=== PATIENT | male | born 1995 | race Caucasian/White ===

== ENCOUNTER 2020-03-21 16:14 | Observation (INO) ==
[2020-03-21] MEDS ORDERED: SODIUM CHLORIDE 0.9% 1000ML 1,000 ML IV SCH (16:45)
--- NOTE | 2020-03-21 16:46 | Emergency Department Note ---
History of Present Illness General Chief complaint: Sore Throat Stated complaint: sore throat Time Seen by Provider: 03/21/20 16:33 History of Present Illness Maximum Pain Intensity: 8 This is a 25-year-old male that presents to the emergency department via private vehicle with complaints of "sore throat". The patient states that this past Wednesday he began with unilateral, left-sided sore throat. This seemed to worsen since that time. Yesterday he got to the point where he could not open his mouth and presented to [facility] where he was evaluated. He notes he was given pain medication. He was reevaluated today and diagnosed with a peritonsillar abscess. He was referred here for further evaluation and management. He denies any fevers, chills, chest pain or shortness of breath. No trouble breathing. He does note some mild drooling and some difficulty swa llowing at times secondary to this. He has never had this before. He notes that he had a negative strep test yesterday performed at [facility] as well as a negative Covid test. He tested negative for mono today. No antibiotics thus far. Home Medications Home Medications Medication Instructions Recorded Confirmed Type ibuprofen [Advil] 400 mg PO Q6H PRN 03/21/20 03/21/20 History Allergies Allergy/AdvReac Type Severity Reaction Status Date / Time No Known Allergies Allergy Unverified 03/21/20 19:00 Past Med/Surg History Medical History No pertinent past medical history Surgical History No pertinent past surgical history Social History Smoking Status: Never smoker Hx Alcohol Use: Yes Hx Substance Use: No Preferred Language: Georgian Communication Ability: Effective Cryolite Recovery Operator Required: No Beliefs That Will Affect Care: None Current Living Situation: Alone Feels Safe at Home: Yes Assistive Devices: Glasses Review of Systems A total of 10 systems reviewed and were otherwise negative Physical Exam Vital Signs Vital Signs - 24 hr 03/21/20 16:27 03/21/20 17:05 03/21/20 17:27 Temperature 37.7 C H Temperature Source Oral Pulse Rate 73 65 75 Pulse Rate from SpO2 Sensor 67 76 Respiratory Rate 18 15 12 Respiratory Effort / Characteristics Non-Labored Spontaneous Respiratory Depth Normal Respiratory Pattern Regular Blood Pressure 168/96 H 150/91 H Blood Pressure Mean 120 107 Blood Pressure Position Sitting Pulse Oximetry 99 99 100 Oxygen Delivery Method Room Air Room Air Room Air Sepsis Recent Fever Within 48 Hours No Sepsis New/Unexplained Change in Mental Status N/A Sepsis Action Taken by Nursing No Action Required 03/21/20 17:30 03/21/20 17:40 03/21/20 18:09 Temperature Temperature Source Pulse Rate 72 81 78 Pulse Rate from SpO2 Sensor 71 80 Respiratory Rate 14 16 9 L Respiratory Effort / Characteristics Respiratory Depth Respiratory Pattern Blood Pressure 150/94 H 151/92 H Blood Pressure Mean 105 113 Blood Pressure Position Pulse Oximetry 98 100 Oxygen Delivery Method Room Air Room Air Room Air Sepsis Recent Fever Within 48 Hours Sepsis New/Unexplained Change in Mental Status Sepsis Action Taken by Nursing 03/21/20 18:11 03/21/20 18:20 03/21/20 18:30 Temperature Temperature Source Pulse Rate 86 82 83 Pulse Rate from SpO2 Sensor 73 Respiratory Rate 16 12 12 Respiratory Effort / Characteristics Respiratory Depth Respiratory Pattern Blood Pressure 150/98 H Blood Pressure Mean 114 Blood Pressure Position Pulse Oximetry 99 Oxygen Delivery Method Room Air Room Air Room Air Sepsis Recent Fever Within 48 Hours Sepsis New/Unexplained Change in Mental Status Sepsis Action Taken by Nursing 03/21/20 18:40 03/21/20 18:50 Temperature Temperature Source Pulse Rate 73 83 Pulse Rate from SpO2 Sensor 73 81 Respiratory Rate 17 16 Respiratory Effort / Characteristics Respiratory Depth Respiratory Pattern Blood Pressure Blood Pressure Mean Blood Pressure Position Pulse Oximetry 98 97 Oxygen Delivery Method Room Air Room Air Sepsis Recent Fever Within 48 Hours Sepsis New/Unexplained Change in Mental Status Sepsis Action Taken by Nursing VITAL SIGNS - Vital signs and nursing notes were reviewed. Stable and borderline febrile. GENERAL -25-year-old male appearing his stated age who is in no acute distress. Communicates well with provider and answers questions appropriately. SKIN - Without rashes. No meningeal or petechial rash HEAD - NC/AT. EYES - PERRL with EOMI bilaterally. Sclera anicteric. Palpebral conjunctiva pink and moist with no injection noted. EARS - No deformities of external structures noted on gross examination bilaterally. No pain elicited with palpation of the tragus bilaterally. External auditory canals without discharge or otorrhea. Tympanic membranes pearly blandon without retraction or bulging. No fluid or purulent material visualized behind the TM. Handle of malleus, umbo, cone of light, pars tensa/flaccid all easily visualized. NOSE - Midline and without cyanosis. No epistaxis or purulent drainage noted. Septum midline without deviation or septal hematoma noted. MOUTH/OROPHARYNX - Without perioral cyanosis. There is 2-3+ tonsillar hypertrophy, also left soft palate involvement with fullness. Trismus noted. No drooling. There is altered phonation noted. Good dentition noted. NECK - Neck with FROM. Supple to palpation. Bilateral left greater than right anterior cervical lymphadenopathy noted. No nuchal rigidity. LUNGS - Chest wall symmetric without accessory muscle use, intercostals retractions, or central cyanosis. Normal vesicular breath sounds CTA B/L. No wheezes, rales, or rhonchi appreciated. CARDIAC - RRR with S1/S2. No murmur, rubs, or gallops appreciated. NEUROLOGIC - Cranial nerves II through XII grossly intact. PSYCH - A&Ox3 and cooperates fully with examiner. Pt is very pleasant and interacts well with examiner. Course Administered Medications Acetaminophen (Ofirmev) 1,000 mg in 100 mls @ 400 mls/hr IV Q8H PRN PRN Reason: Pain or Fever Stop: 03/24/20 20:06 Last Infusion: 03/21/20 21:01 Dose: 0 mls/hr Documented by: [id number] Admin: 03/21/20 20:38 Dose: 400 mls/hr Documented by: [id number] Discontinued Medications Dexamethasone (Dexamethasone Sod Inj 10 Mg/Ml Vial) 10 mg IV NOW ONE Stop: 03/21/20 17:31 Last Admin: 03/21/20 18:20 Dose: 10 mg Documented by: [id number] Sodium Chloride (Nss 1000ml) 1,000 mls @ 999 mls/hr IV .Q1H1M BRENDA Stop: 03/21/20 17:45 Last Infusion: 03/21/20 18:15 Dose: 0 mls/hr Documented by: [id number] Admin: 03/21/20 17:09 Dose: 999 mls/hr Documented by: [id number] Ampicillin Sodium/Sulbactam Sodium 3,000 mg/ Sodium Chloride 108 mls @ 200 mls/hr IV NOW STA; Protocol Stop: 03/21/20 18:02 Last Infusion: 03/21/20 19:03 Dose: 0 mls/hr Documented by: [id number] Admin: 03/21/20 18:20 Dose: 200 mls/hr Documented by: [id number] Ioversol (Ioversol 100ml) 94 ml IV ONCE ONE Stop: 03/21/20 18:01 Last Admin: 03/21/20 18:00 Dose: 94 ml Documented by: [id number] Ketorolac Tromethamine (Ketorolac Tromethamine 15 Mg/Ml Vial) 15 mg IV NOW STA Stop: 03/21/20 17:31 Last Admin: 03/21/20 18:20 Dose: 15 mg Documented by: [id number] Medical Decision Making Laboratory Data Result diagrams: 03/21/20 17:05 03/21/20 17:05 Lab Results 03/21/20 03/21/20 Range/Units 17:05 17:05 WBC 11.62 H (4.8-10.8) K/uL RBC 5.11 (4.7-6.1) M/uL Hgb 15.5 (14.0-18.0) g/dL Hct 45.1 (42-52) % MCV 88.3 (80-100) fL MCH 30.3 (25-34) pg MCHC 34.4 (32-36) g/dL RDW Std Deviation 39.1 (36.4-46.3) fL RDW Coeff of Ravin 12.2 (11.5-14.5) % Plt Count 262 (130-400) K/uL MPV 9.8 (7.4-10.4) fL Immature Gran % (Auto) 0.2 % Neut % (Auto) 70.0 % Lymph % (Auto) 18.5 % Davison % (Auto) 10.9 % Eos % (Auto) 0.3 % Baso % (Auto) 0.1 % Neut # (Auto) 8.13 H (1.4-6.5) K/uL Lymph # (Auto) 2.15 (1.2-3.4) K/uL Davison # (Auto) 1.27 H (0.11-0.59) K/uL Eos # (Auto) 0.04 (0-0.5) K/uL Baso # (Auto) 0.01 (0-0.2) K/uL Immature Gran # (Auto) 0.02 (0.00-0.02) K/uL Sodium 140 (136-145) mmol/L Potassium 3.8 (3.5-5.1) mmol/L Chloride 109 H (98-107) mmol/L Carbon Dioxide 25 (21-32) mmol/L Anion Gap 7.0 (3-11) BUN 14 (7-18) mg/dl Creatinine 0.97 (0.6-1.4) mg/dl Est Cr Clr Drug Dosing 126.1 ml/min Est GFR ( Amer) 127.0 Est GFR (Non-Af Amer) 109.6 BUN/Creatinine Ratio 14.4 (10-20) Glucose 78 (70-99) mg/dl Calcium 10.1 (8.5-10.1) mg/dl Total Bilirubin 1.3 H (0.2-1) mg/dl AST 15 (15-37) U/L ALT 41 (12-78) U/L Alkaline Phosphatase 85 (45-117) U/L Total Protein 7.9 (6.4-8.2) gm/dl Albumin 3.8 (3.4-5.0) gm/dl Globulin 4.1 H (2.5-4.0) gm/dl Albumin/Globulin Ratio 0.9 (0.9-2) Imaging Data Radiologist's Impression: CT soft tissue neck w con HISTORY: left sided tonsillar pain, drooling, trismus TECHNIQUE: Multiaxial CT images of the neck were performed following the use of 94 cc of Optiray 320. COMPARISON STUDY: None. FINDINGS: The visualized brain parenchyma and orbits are unremarkable. The pterygopalatine fossa are well-maintained. The parotid and submandibular glands are symmetric. The thyroid gland enhances normally. The lung apices are clear. No fractures within the visualized osseous structures. The paranasal sinuses and mastoid air cells are clear. The major cervical vessels enhance normally. Prevertebral soft tissues and the epiglottis are normal in thickness. There is mild hypertrophy of the lingual tonsils. There is mild left-sided cervical lymphadenopathy. This is likely reactive. There is heterogeneous enhancement and enlargement of the bilateral pontine tonsils, left greater than right. These abut at the midline and result in narrowing of the oropharynx. There is a left anterior peritonsillar hypodensity demonstrate partial peripheral enhancement best seen on axial images 174 through 185. This measures approximately 1.8 x 1.2 cm and is consistent with a developing peritonsillar abscess. Trace edema withi n the left paratracheal fat spaces which is likely reactive. IMPRESSION: 1. There is heterogeneous enhancement and enlargement of the bilateral pontine tonsils, left greater than right. These abut at the midline and result in narrowing of the oropharynx. This is consistent with a tonsillitis. 2. There is a 1.8 x 1.2 cm hypodensity within the left anterior peritonsillar location which demonstrates partial peripheral enhancement. Therefore, this is consistent with a developing peritonsillar abscess. 3. Mild left-sided cervical lymphadenopathy which is likely reactive. ACT 112: Negative or not required by law. Electronically signed by: Migel Sosa M.D. 03/21/2020 6:39 PM MDM Narrative Patient was seen and evaluated as above in room B09. Review was performed of nursing notes and vital signs. I did review paperwork from [facility]. After obtaining a thorough history and physical examination the above work up was performed. He presents to us today with a sore throat, mainly left side with suspected peritonsillar abscess. I would agree with this concern on examination. Vital signs stable. Discussed case with on-call ENT physician, Dr. Jimenez. 10 mg of dexamethasone IV every 8, IV Unasyn recommended. We discussed patient presentation and physical examination here. The patient has trismus, notes that he is experiencing drooling at times, and does have difficulty swallowing. Given this we agreed it is reasonable to have him stay in the hospital overnight to be reassessed in the a.m. by ENT for potential drainage of the suspected peritonsillar abscess. We agreed upon obtaining imaging. Results of the CT as above. Patient will be mated to the hospital for intravenous antibiotics, steroids, pain control with evaluation by ENT with likely drainage tomorrow. Patient amenable to staying. Please refer to further documentation regarding his stay. In the evaluation and treatment of this patient the following differential diagnoses were entertained: Strep pharyngitis, viral pharyngitis, allergic rhinitis with post nasal drip, airway obstruction, head/neck neoplasias, GERD, peritonisllar abscess, epiglottitis, eqri-dprj-mkd-mouth disease, herpes simplex, mononucleosis, pneumonia, retropharyngeal abscess, scarlet fever, among others. Impression & Plan Peritonsillar abscess Discharge Plan Visit Data Chief Complaint: Sore Throat Stated Complaint: sore throat ED Provider: [facility] Midlevel Provider: Artur Rosas Discharge Problem: Peritonsillar abscess Patient Disposition: Admitted As Inpatient Condition: Good Discharge Instructions Interventions: ED Discharge Assessment Last Done: 03/21/20 19:42
[2020-03-21 17:12] LABS: Basophils # (auto) 0.01 K/uL (0-0.2); Basophils % (auto) 0.1 %; Eosinophils # (auto) 0.04 K/uL (0-0.5); Eosinophils % (auto) 0.3 %; Hematocrit (blood only) 45.1 % (42-52); Hemoglobin 15.5 g/dL (14.0-18.0); Immature Granulocytes # (auto) 0.02 K/uL (0.00-0.02); Immature Granulocytes % (auto) 0.2 %; Lymphocytes # (auto) 2.15 K/uL (1.2-3.4); Lymphocytes % (auto) 18.5 %; Mean Corpuscular Hemoglobin 30.3 pg (25-34); Mean Corpuscular Hgb Conc 34.4 g/dL (32-36); Mean Corpuscular Volume 88.3 fL (80-100); Mean Platelet Volume 9.8 fL (7.4-10.4); Monocytes # (auto) 1.27 K/uL (0.11-0.59); Monocytes % (auto) 10.9 %; Neutrophils # (auto) 8.13 K/uL (1.4-6.5); Platelet Count 262 K/uL (130-400); RDW Coefficient of Variation 12.2 % (11.5-14.5); RDW Standard Deviation 39.1 fL (36.4-46.3); Red Blood Count 5.11 M/uL (4.7-6.1); White Blood Count 11.62 K/uL (4.8-10.8)
[2020-03-21] MEDS ORDERED: AMPICILLIN/SULBACTAM SOD 3,000 MG in 0.9 % SODIUM CHLORIDE 100 ML IV STA (17:30)
[2020-03-21] MEDS ORDERED: DEXAMETHASONE SOD INJ 10 MG/ML VIAL IV ONE (17:30)
[2020-03-21] MEDS ORDERED: KETOROLAC TROMETHAMINE 15 MG/ML VIAL IV STA (17:30)
[2020-03-21 17:31] LABS: Albumin Level 3.8 gm/dl (3.4-5.0); BUN Creatinine Ratio 14.4 (10-20); Calcium 10.1 mg/dl (8.5-10.1); Creatinine Clr Calc Pharmacy 126.1 ml/min; Est GFR (Non-African American) 109.6; Potassium 3.8 mmol/L (3.5-5.1)
[2020-03-21 17:34] LABS: Albumin Globulin Ratio 0.9 (0.9-2); Bilirubin,Total 1.3 mg/dl (0.2-1); Globulin 4.1 gm/dl (2.5-4.0); Total Protein 7.9 gm/dl (6.4-8.2)
[2020-03-21] MEDS ORDERED: IOVERSOL 100ml IV ONE (18:00)
--- NOTE | 2020-03-21 18:40 | CT Scan Report ---
CT soft tissue neck w con HISTORY: left sided tonsillar pain, drooling, trismus TECHNIQUE: Multiaxial CT images of the neck were performed following the use of 94 cc of Optiray 320. COMPARISON STUDY: None. FINDINGS: The visualized brain parenchyma and orbits are unremarkable. The pterygopalatine fossa are well-maintained. The parotid and submandibular glands are symmetric. The thyroid gland enhances natasha lly. The lung apices are clear. No fractures within the visualized osseous structures. The paranasal sinuses and mastoid air cells are clear. The major cervical vessels enhance normally. Prevertebral so ft tissues and the epiglottis are normal in thickness. There is mild hypertrophy of the lingual tonsi ls. There is mild left-sided cervical lymphadenopathy. This is likely reactive. There is heterogeneou s enhancement and enlargement of the bilateral pontine tonsils, left greater than right. These abut a t the midline and result in narrowing of the oropharynx. There is a left anterior peritonsillar hypod ensity demonstrate partial peripheral enhancement best seen on axial images 174 through 185. This jocy sures approximately 1.8 x 1.2 cm and is consistent with a developing peritonsillar abscess. Trace munir ma within the left paratracheal fat spaces which is likely reactive. IMPRESSION: 1. There is heterogeneous enhancement and enlargement of the bilateral pontine tonsils, left greater than right. These abut at the midline and result in narrowing of the oropharynx. This is consistent w ith a tonsillitis. 2. There is a 1.8 x 1.2 cm hypodensity within the left anterior peritonsillar location which demonstr ates partial peripheral enhancement. Therefore, this is consistent with a developing peritonsillar ab scess. 3. Mild left-sided cervical lymphadenopathy which is likely reactive. ACT 112: Negative or not required by law. Electronically signed by: Migel Sosa M.D. 03/21/2020 6:39 PM
--- NOTE | 2020-03-21 19:00 | History & Physical Report ---
Date of Service March 21, 2020 Assessment & Plan (1) Peritonsillar abscess: Request [facility] negative COVID-19 test. Unasyn 3 g IV every 6 hours Decadron 10 mg IV every 8 hours Consult ENT Admission and Anticipated Discharge Date Admission Date: 03/21/2020 History of Present Illness Chief Complaint: Sore throat Primary Care Provider: [facility] Ben Azul is a 25-year-old male who presents due to a sore throat. He has a longstanding history of repeated sore throat infections. At one point he started the discussed taking out his tonsils otitis was never performed as he never had enough infections to warrant this. This sore throat started 4 days ago. Progressively getting worse since that time. Had a telehealth visit 2 days ago recommended ibuprofen alone. He followed up yesterday for an in person visit with [facility] with a rapid strep negative, mono negative times Covid negative test. He was reevaluated today with significant trismus was therefore advised to come to the ER due to concerns for tonsillar abscess. No fevers, chills, dyspnea. In the ER he had a CT neck soft tissue showing 1.8 x 1.2 cm hypodensity concerning for developing peritonsillar abscess. Allergies Allergy/AdvReac Type Severity Reaction Status Date / Time No Known Allergies Allergy Unverified 03/21/20 19:00 Home Medications Home Medications Medication Instructions Recorded Confirmed Type ibuprofen [Advil] 400 mg PO Q6H PRN 03/21/20 03/21/20 History Past Med/Surg History Medical History No pertinent past medical history Surgical History No pertinent past surgical history Social History Smoking Status: Never smoker Hx Alcohol Use: Yes Hx Substance Use: No Preferred Language: Kyrgyz Communication Ability: Effective Licensed Practical Nurse Required: No Beliefs That Will Affect Care: None Current Living Situation: Alone Feels Safe at Home: Yes Assistive Devices: Glasses Review of Systems Review of Systems: All systems reviewed & are unremarkable except as noted in HPI & below Physical Exam Constitutional: well developed and well nourished; no acute distress Eyes: + anicteric sclerae; normal pupil size ENMT: Left-sided neck tenderness to palpation without significant erythema or swelling. Shotty cervical lymphadenopathy on left side. Neck: trachea midline Respiratory: normal respiratory effort, lungs clear to auscultation no stridor Cardiovascular: RRR, no murmur, no edema Skin: no rashes, warm and dry Psychiatric: A+Ox3, euthymic affect Results & Data Results & Data ([facility]) Vital Signs (Past 12 Hours) Vital Signs Temp Pulse Resp BP Pulse Ox 03/21/20 16:27 37.7 C H 73 18 168/[address] soft tissue neck w con IMPRESSION: 1. There is heterogeneous enhancement and enlargement of the bilateral pontine tonsils, left greater than right. These abut at the midline and result in narrowing of the oropharynx. This is consistent with a tonsillitis. 2. There is a 1.8 x 1.2 cm hypodensity within the left anterior peritonsillar location which demonstrates partial peripheral enhancement. Therefore, this is consistent with a developing peritonsillar abscess. 3. Mild left-sided cervical lymphadenopathy which is likely reactive. Code Status & VTE Plan Code Status Full PG Care Time/CCT Total # of Minutes Spent Total Time Spent with Patient: Total time spent is greater than 50% in coordination of care (as documented) at patient's floor/unit and/or counseling patient: Coding Level of Care Code 67067 OBS Care - Level 2 Diagnoses Peritonsillar abscess J36
[2020-03-21] MEDS: ACETAMINOPHEN 1,000 MG/100 ML VIAL IV PRN (20:38)
[2020-03-22] MEDS: AMPICILLIN/SULBACTAM SOD 3,000 MG in 0.9 % SODIUM CHLORIDE 100 ML IV SCH ×5 (00:33→23:29)
[2020-03-22] MEDS: DEXAMETHASONE SOD PHOSPHATE 10 MG in SYRINGE 0 ML IV SCH ×3 (01:05→17:51)
[2020-03-22] MEDS ORDERED: DEXAMETHASONE SOD INJ 10 MG/ML VIAL IV SCH (02:00)
--- NOTE | 2020-03-22 11:16 | ENT Consultation ---
Date of Consultation March 22, 2020 Assessment & Plan (1) Peritonsillar abscess: Diet: liquids in 2 hours, then softs, full tomorrow D/C on 14 days Augmentin, medrol dose pack, can follow-up with me in 2 weeks if any questions or concerns. 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 Feeling much better today, normal voice, no difficulty swallowing. Was antibiotic naive. Allergies Allergy/AdvReac Type Severity Reaction Status Date / Time No Known Allergies Allergy Unverified 03/21/20 19:00 Home Medications Home Medications Medication Instructions Recorded Confirmed Type ibuprofen [Advil] 400 mg PO Q6H PRN 03/21/20 03/21/20 History Patient History Medical History No pertinent past medical history Surgical History No pertinent past surgical history Social History Smoking Status: Never smoker Hx Alcohol Use: Yes Hx Substance Use: No Preferred Language: Uzbek Communication Ability: Effective Milk Treater Required: No Beliefs That Will Affect Care: None Current Living Situation: Alone Feels Safe at Home: Yes Assistive Devices: Glasses Review of Systems Review of Systems: All systems reviewed & are unremarkable except as noted in HPI & below Physical Exam Physical Exam: General: AAOx3 Oral cavity: Slight asymmetry of left tonsil, much improved based on comparison with CT Procedure: 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 Then 18 guage needle was used to aspirate into the space. Scant purulence was returned. Patient tolerated without any issues. Results & Data ([facility]) Vital Signs (Past 12 Hours) Vital Signs Temp Pulse Resp BP Pulse Ox 03/22/20 07:39 36.6 C 52 L 20 135/73 100 03/22/20 00:01 36.7 C 69 19 126/80 97
--- NOTE | 2020-03-22 11:58 | Hospitalist Progress Note ---
Date of Service March 22, 2020 Assessment & Plan (1) Peritonsillar abscess: Small left peritonsillar abscess seen on CT on 03/21. - Drained small amount of fluid by ENT on 03/22. - Continue Unasyn & dexamethasone - Slowly advance diet, monitor overnight. - Discharge on 2 weeks of Augmentin and a Medrol-Dosepak per ENT. Can follow up in 2 weeks if needed with ENT. If he feels entirely back to baseline, he can skip the follow up. Admission and Anticipated Discharge Date Admission Date: March 21, 2020 Subjective Feeling like 80% better this morning. Able to handle secretions and talk in more clear voice. Reports no fevers/chills, chest pain, shortness of breath, abdominal pain, nausea, or vomiting. Physical Exam Constitutional: WD/WN, vitals as above Eyes: EOM intact bilaterally; no conjunctival abnormality ENMT: external ear and nose normal, oropharynx normal Neck: trachea midline, no thyromegaly normal visual inspection, trachea midline and + neck tender (Mildly on left side); no midline deformity Respiratory: normal respiratory effort, lungs clear to auscultation no respiratory distress Cardiovascular: RRR, no murmur, no edema Gastrointestinal (Abdomen): Inspection/Auscultation: abdomen normal to inspection; abdomen not distended Musculoskeletal: no cyanosis or clubbing, extremities motor strength 5/5 Skin: no rashes, warm and dry Neurologic: moves all extremities and awake Psychiatric: Orientation: alert, oriented to person and cooperative Results & Data Results & Data ([facility]) Vital Signs (Past 12 Hours) Vital Signs Temp Pulse Resp BP Pulse Ox 03/22/20 07:39 36.6 C 52 L 20 135/73 100 03/22/20 00:01 36.7 C 69 19 126/80 97 PG Care Time/CCT Total # of Minutes Spent Total Time Spent with Patient: Total time spent is greater than 50% in coordination of care (as documented) at patient's floor/unit and/or counseling patient: Coding Level of Care Code 26623 Subseq Hosp Care Lvl 2 Diagnoses Peritonsillar abscess J36
[2020-03-22] MEDS: ACETAMINOPHEN 1,000 MG/100 ML VIAL IV PRN (12:06)
[2020-03-23] MEDS: DEXAMETHASONE SOD PHOSPHATE 10 MG in SYRINGE 0 ML IV SCH ×2 (01:55→10:27)
[2020-03-23] MEDS: AMPICILLIN/SULBACTAM SOD 3,000 MG in 0.9 % SODIUM CHLORIDE 100 ML IV SCH (05:32)
--- NOTE | 2020-03-23 22:01 | Discharge Summary ---
Date of Service March 23, 2020 Admission HPI Per Admitting Provider Ben Azul is a 25-year-old male who presents due to a sore throat. He has a longstanding history of repeated sore throat infections. At one point he started the discussed taking out his tonsils otitis was never performed as he never had enough infections to warrant this. This sore throat started 4 days ago. Progressively getting worse since that time. Had a telehealth visit 2 days ago recommended ibuprofen alone. He followed up yesterday for an in person visit with [facility] with a rapid strep negative, mono negative times Covid negative test. He was reevaluated today with significant trismus was therefore advised to come to the ER due to concerns for tonsillar abscess. No fevers, chills, dyspnea. In the ER he had a CT neck soft tissue showing 1.8 x 1.2 cm hypodensity concerning for developing peritonsillar abscess. Principal Diagnosis Peritonsillar abscess Discharge Exam Constitutional WD/WN, vitals as above Eyes EOM intact bilaterally; no conjunctival abnormality ENMT external ear and nose normal, oropharynx normal Neck trachea midline, no thyromegaly normal visual inspection, trachea midline and + neck tender (Mildly on left side); no midline deformity Respiratory normal respiratory effort, lungs clear to auscultation no respiratory distress Cardiovascular RRR, no murmur, no edema Gastrointestinal (Abdomen) Inspection/Auscultation: abdomen normal to inspection; abdomen not distended Musculoskeletal no cyanosis or clubbing, extremities motor strength 5/5 Skin no rashes, warm and dry Neurologic moves all extremities and awake Psychiatric Orientation: alert, oriented to person and cooperative Discharge Data Allergies Allergy/AdvReac Type Severity Reaction Status Date / Time No Known Allergies Allergy Unverified 03/21/20 19:00 Consultations 03/21/20 17:31 ED Decision to Admit Stat 03/21/20 20:07 Consult Otolaryngology (Head and Neck) Routine Ordered Studies 03/21/20 17:31 CT soft tissue neck w con Stat Hospital Course (1) Peritonsillar abscess: Small left peritonsillar abscess seen on CT on 03/21. - Drained small amount of fluid by ENT on 03/22. - Continued Unasyn & dexamethasone while inpatient. - Slowly advance diet, monitor overnight. - Did well. 95% resolved by 03/23. - Discharged on 2 weeks of Augmentin and a Medrol-Dosepak per ENT. Can follow up in 2 weeks if needed with ENT. If he feels entirely back to baseline, he can skip the follow up. Total Time Total Time Spent Total Time Spent (In Minutes): 35 Discharge Plan Discharge Items Patient Disposition: Home - Self-Care Reason For Visit: PERITONSILLAR ABSCESS Discharge Diagnosis: Peritonsillar abscess Condition on Discharge: Good Activity: Resume your previous activity Non-emergency contact: Primary Care Provider and Surgeon Call non-emergency contact if: your symptoms worsen, your pain is worsening and your temperature is above 101 Follow-up/Referrals: [facility] [Primary Care Provider] - Opal Jimenez MD [Surgeon] - (Please see Dr. Jimenez in 2 weeks if you are not 100% back to baseline.) Diet: Regular Addtl Attending Provider Instructions: You were here with a peritonsillar abscess that the ENT doctor drained. 1) Please take the Augmentin two times per day until they are gone. This will be for 2 weeks. The first dose is tonight. 2) Please take the Medrol Dosepak as indicated on the packaging. 3) Please call Dr. Jimenez's office for follow up in 2 weeks if you are having any symptoms at all. If you feel your pain is getting worse, start to have fevers, have more trouble swallowing or breathing, or any other issues, please call her office right away or come back to the Emergency Department. Pending Studies at Discharge: Yes Studies:: Culture Stand-Alone Forms: My [facility] [place], Smoking Cessation Medications and DC Order Prescriptions: New amoxicillin-pot clavulanate [Augmentin] 875-125 mg tablet 1 tab PO BID Qty: 28 RF: 0 methylprednisolone [Medrol (Evgeny)] 4 mg tablets,dose pack See Rx Instructions .ROUTE .COMPLEX Qty: 21 RF: 0 Discontinued ibuprofen [Advil] 200 mg Tablet 400 mg PO Q6H PRN (Reason: Pain) RF: 0 Discharge Orders: Discharge Order (Routine); Ordered 03/23/20 Ordered By: Jordin Poole/Other Patient Handouts: Peritonsillar Abscess Admission Data Admit Date/Time: 03/21/20 18:58 Attending Provider: Jordin Martínez Admit Provider: Eulalio Gusman Primary Care Provider: [facility] Other Providers: Eulalio Gusman ; Opal Jimenez Other Interventions: Discharge Summary Assessment (RN) Last Done: 03/23/20 10:59 Coding Level of Care Code 30633 OBS Care - Discharge Diagnoses Peritonsillar abscess J36
== END 2020-03-23 11:45 | disposition home or self-care (01) ==
LOC: ED 16:14 → 3N 16:14 → SUATTDRO 18:58 → 3N 19:42